=== PATIENT | male | born 1955 | race Caucasian/White ===

== ENCOUNTER 2016-05-07 19:09 | Emergency (ER) | payer OTHER ==
[2016-05-07 23:10] LABS: HEMOGLOBIN 9.9 gm/dl (14.0-17.5); RED BLOOD COUNT 3.53 M/UL (4.20-5.50); WHITE BLOOD COUNT 9.6 K/UL (4.5-11.0)
[2016-05-07 23:23] LABS: BUN/CREATININE RATIO 17 (0-10)
== END 2016-05-08 03:00 | disposition short-term general hospital (02) ==
LOC: ER1 19:09
PROVIDERS: Specialist/Technologist Athletic Trainer
DX: K56.60 Unspecified intestinal obstruction (principal); D49.0 Neoplasm of unspecified behavior of digestive system; D64.9 Anemia, unspecified; Z85.818 Personal history of malignant neoplasm of other sites of lip, oral cavity, and pharynx
CPT/HCPCS: 36415; 80053; 83605; 83690; 85025; 99285; J2405; J2550; J7050; Q9962

== ENCOUNTER → 2016-06-24 | Outpatient (CLI) | payer OTHER | LOC: RAD 06-16 08:00 | DX: R13.10 Dysphagia, unspecified (principal) | CPT/HCPCS: 74230; 92611-GN ==

== ENCOUNTER → 2016-08-06 | Outpatient (CLI) | payer OTHER | LOC: RAD 11:45 | DX: G89.3 Neoplasm related pain (acute) (chronic) (principal); C78.4 Secondary malignant neoplasm of small intestine; K59.00 Constipation, unspecified; I70.209 Unspecified atherosclerosis of native arteries of extremities, unspecified extremity | CPT/HCPCS: 74000 ==